=== PATIENT | female | born 1995 | race Caucasian/White ===

== ENCOUNTER 2020-05-06 15:05 | Emergency (ER) | payer OTHER ==
[~2020-05-06] VITALS: Ht 160 cm; Wt 65.8 kg
[2020-05-06] MEDS ORDERED: ORILISSA150 MG PO (15:09)
[2020-05-06] MEDS ORDERED: PROZAC20 M1 PO (15:09)
[2020-05-06] MEDS ORDERED: ACCUTANE PO (15:11)
[2020-05-06 17:45] VITALS: BP 114/78
[2020-05-06] MEDS ORDERED: ONDANSETRON HCL4 M2 PO (18:34)
== END 2020-05-06 17:45 | disposition home or self-care (01) ==
LOC: ER 15:05
DX: S06.0X9A Concussion with loss of consciousness of unspecified duration, initial encounter (principal); Z79.899 Other long term (current) drug therapy; V43.52XA Car driver injured in collision with other type car in traffic accident, initial encounter; Y93.I9 Activity, other involving external motion; Y92.488 Other paved roadways as the place of occurrence of the external cause; Y99.8 Other external cause status